=== PATIENT | male | born 1955 | race Caucasian/White ===

== ENCOUNTER → 2017-10-16 | Outpatient (CLI) | payer BC | LOC: GMAB 11:09 | PROVIDERS: ATTEND Family Medicine | DX: Z00.00 Encounter for general adult medical examination without abnormal findings (principal); Z79.01 Long term (current) use of anticoagulants ==

== ENCOUNTER → 2020-10-21 | Outpatient (CLI) | payer BC | LOC: YCFC.O 08:36 | PROVIDERS: ATTEND Family Medicine | DX: R53.83 Other fatigue (principal); E78.5 Hyperlipidemia, unspecified; R32 Unspecified urinary incontinence; I10 Essential (primary) hypertension; Z12.5 Encounter for screening for malignant neoplasm of prostate ==